=== PATIENT | female | born 1945 | race Caucasian/White ===

== ENCOUNTER 2018-06-18 22:36 | Emergency (ER) | payer MEDICARE ==
[2018-06-18 22:37] VITALS: BMI 29.4
[2018-06-18 22:43] VITALS: RESP 18
[2018-06-18 23:09] LABS: MEAN CELL VOLUME 83.4 fL (81.0-99.0); MEAN CORPUSCULAR HEMOGLOBIN 26.8 pg (27.0-31.0); MEAN CORPUSCULAR HGB CONC 32.1 g/dL (33.0-37.0); MEAN PLATELET VOLUME 7.8 fL (7.2-11.7); RBC 4.1 Mil/uL (3.80-5.20); RED CELL DISTRIBUTION WIDTH 17.5 % (11.5-14.5); WHITE BLOOD COUNT 8.7 K/uL (4.8-10.8)
[2018-06-18 23:21] LABS: ALB/GLOB RATIO 1.3 (1.0-2.1); ALBUMIN 4.4 g/dL (3.5-5.0); ALT/SGPT 168 U/L (9-52); AST/SGOT 309 U/L (14-36); BLOOD UREA NITROGEN 19 mg/dL (7-17); CALCIUM 9.2 mg/dl (8.6-10.4); GFR NON-AFRICAN AMERICAN > 60
[2018-06-18 23:29] LABS: NEUT % 69.3 % (50.0-75.0)
[2018-06-18 23:30] LABS: BASO % 0.3 % (0.0-2.0); EOS # 0.1 K/uL (0.0-0.7); LYMPH % 21.3 % (20.0-40.0); MONO # 0.7 K/uL (0.0-0.8); MONO % 8.1 % (0.0-10.0)
[2018-06-18 23:34] LABS: LYMPH # 1.9 K/uL (1.0-4.3)
--- NOTE | 2018-06-18 23:41 | C.PDOC ---
History Of Present Illness 72 year old female presents to the ER with epigastric colic. Patient has had multiple evaluations for the same. Patient had CT in January 2018 for same that showed large amounts of stool. Denies nausea, vomiting, or diarrhea. Time Seen by Provider: 06/18/18 23:02 Chief Complaint (Nursing): Abdominal Pain History Per: Patient History/Exam Limitations: no limitations Onset/Duration Of Symptoms: Hrs Current Symptoms Are (Timing): Still Present Location Of Pain/Discomfort: Epigastric Associated Symptoms: denies: Nausea, Vomiting, Diarrhea Exacerbating Factors: None Alleviating Factors: None Recent travel outside of the [place]: No Past Medical History Reviewed: Historical Data, Nursing Documentation, Vital Signs Vital Signs: Last Vital Signs Temp 97.4 F L 06/18/18 22:41 Pulse 119 H 06/18/18 22:41 Resp 18 06/18/18 22:41 BP 167/100 H 06/18/18 22:41 Pulse Ox 99 06/18/18 22:41 - Medical History PMH: Anemia, Arthritis, Back Problems, Colonic Polyps, Diabetes, Diverticulitis (diverticulosis), Gall Bladder Disease, HTN, Hypercholesterolemia Denies: Crohn's Disease, Gastritis, HIV, Pancreatitis, Chronic Kidney Disease Surgical History: Cholecystectomy Denies: Pacemaker - [facility] Procedures COLONOSCOPY (07/22/14) DILATION OF COMMON BILE DUCT WITH INTRALUMINAL DEVICE, ENDO (08/11/15) EXCISION OF DUODENUM, ENDO, DIAGN (06/07/16) EXCISION OF MIDDLE ESOPHAGUS, ENDO, DIAGN (06/07/16) EXCISION OF STOMACH, PYLORUS, ENDO, DIAGN (06/07/16) FLUOROSCOPY OF BILE DUCTS USING LOW OSMOLAR CONTRAST (06/07/16) INSPECTION OF HEPATOBILIARY DUCT, ENDO (06/07/16) RELEASE GALLBLADDER, PERCUTANEOUS ENDOSCOPIC APPROACH (08/11/15) RESECTION OF GALLBLADDER, PERCUTANEOUS ENDOSCOPIC APPROACH (08/11/15) ROBOTIC ASSISTED PROCEDURE OF TRUNK, PERC ENDO APPROACH (08/11/15) Family History: States: Unknown Family Hx - Social History Hx Tobacco Use: No Hx Alcohol Use: No Hx Substance Use: No - Immunization History Hx Influenza Vaccination: Yes Hx Pneumococcal Vaccination: (not sure) Review Of Systems Constitutional: Negative for: Fever, Chills Cardiovascular: Negative for: Chest Pain, Palpitations Respiratory: Negative for: Cough, Shortness of Breath Gastrointestinal: Positive for: Abdominal Pain. Negative for: Nausea, Vomiting Neurological: Negative for: Weakness, Numbness Physical Exam - Physical Exam Appears: Non-toxic, Other (Elderly mosotho female) Skin: Normal Color, Warm, Dry Head: Atraumatic, Normacephalic Eye(s): bilateral: Normal Inspection Oral Mucosa: Moist Chest: Symmetrical, No Tenderness Cardiovascular: Rhythm Regular Respiratory: Normal Breath Sounds, No Rales, No Rhonchi, No Wheezing Gastrointestinal/Abdominal: Soft, Tenderness (Mild epigastic), No Guarding, No Rebound, Other (Obese globus, tympanic to percussion at epigastrium, dull to percussion to right and left.) Back: No CVA Tenderness Neurological/Psych: Oriented x3, Normal Speech ED Course And Treatment - Laboratory Results Result Diagrams: 06/18/18 23:00 06/18/18 23:00 Lab Interpretation: Normal O2 Sat by Pulse Oximetry: 99 Pulse Ox Interpretation: Normal - Radiology CXR: Interpreted by Me CXR Interpretation: Yes: No Acute Disease - Other Rad abd x 2 X-Ray: Interpreted by Me (+FOS, no obst/FA) Reevaluation Time: 23:40 Reassessment Condition: Improved Medical Decision Making Medical Decision Making: acute on chronic constip many prior evals for same, multiple CT's showing no acute pathology besides +FOS diet of basically bread and pasta, "because vegetables give me reflux" attempted to educated/poor insight. laxatives educated. Disposition Doctor Will See Patient In The: Office Counseled Patient/Family Regarding: Studies Performed, Diagnosis - Disposition Referrals: Doroteo Benoit [Staff Provider] - Disposition: HOME/ ROUTINE Disposition Time: 23:41 Condition: GOOD Additional Instructions: normal labs abd films with LARGE constipation consider recent colonoscopy Drink laxative now- one entire bottle of Mag Citrate Re-evaluate your abdominal discomfort after using the bathroom 2-3 times diet and exercise changes drink more water 7 fresh fruits and vegetables per day avoid constipating foods like rice, bread, pasta, cooked vegetables. outpatient follow-up with Dr. Benoit as needed. Instructions: Constipation in Adults Forms: [facility] ([place]) - Clinical Impression Clinical Impression: Abdominal pain, colicky - Scribe Statement The provider has reviewed the documentation as recorded by the Scribe Vadim Harrell All medical record entries made by the Scribe were at my direction and personally dictated by me. I have reviewed the chart and agree that the record accurately reflects my personal performance of the history, physical exam, medical decision making, and the department course for this patient. I have also personally directed, reviewed, and agree with the discharge instructions and disposition.
[2018-06-18] MEDS ORDERED: Magnesium Citrate Oral SOL (300 ml) PO ONE (23:48)
[2018-06-18] MEDS ORDERED: Magnesium Citrate Oral SOL (300 ml) ONE (23:53)
[2018-06-19 00:19] VITALS: BP 150/91; PULSE 123; TEMP 99.7
[2018-06-19 04:33] VITALS: O2SAT 99
--- NOTE | 2018-06-19 10:47 | RAD ---
Date of service: 06/18/2018 PROCEDURE: Radiographs of the chest and abdomen (obstructive series) HISTORY: abd pain COMPARISON: No prior. TECHNIQUE: AP radiograph of the chest, with upright and supine radiographs of the abdomen. FINDINGS: CHEST: Lungs: Clear. Cardiovascular: Normal size heart. No pulmonary vascular congestion. No aortic atherosclerotic calcification present Pleura: No pleural fluid. No pneumothorax. Other findings: None. ABDOMEN AND PELVIS: Bowel: Unremarkable bowel gas pattern. No evidence of mechanical obstruction. Free air: None. Bones: Unremarkable. Other findings: None. IMPRESSION: Unremarkable radiographs of chest and abdomen. No evidence of mechanical bowel obstruction.
== END 2018-06-19 00:22 | disposition home or self-care (01) ==
LOC: C.ER 22:36
DX: R10.84 Generalized abdominal pain (principal); I10 Essential (primary) hypertension; E78.00 Pure hypercholesterolemia, unspecified; E11.9 Type 2 diabetes mellitus without complications

== ENCOUNTER 2018-08-08 08:22 | Outpatient (CLI) | payer MEDICARE | END 2018-08-08 08:23 | disposition home or self-care (01) | LOC: C.USIC 08:22 ==